=== PATIENT | female | born 1950 | race Caucasian/White ===

== ENCOUNTER 2025-08-06 08:25 | Day surgery (SDC) | payer MEDICARE, OTHER, SELFPAY ==
--- NOTE | 2025-07-31 10:43 | EXP.HP ---
History of Present Illness *Admission Date: 08/06/25 *History of present illness: Mrs. Tinoco is a 75-year-old female who is here for screening/surveillance endoscopy and colonoscopy. She does have a history of adenomatous colon polyps. Her colonoscopy with ut at age 49 was normal. Her colonoscopy in March 2011 (Lucero Saldana MD) showed a single diminutive polyp. Her last colonoscopy with ut in October 2017 revealed a single polyp (mucosal prolapse polyp). The patient does have a history of a larger and more advanced duodenal adenoma and her last EGD was in March 2022. At that time there was a fibrotic scar at the site of prior removal but no residual adenoma. The examination is deemed medically necessary for EGD and screening colonoscopy. The patient has been seen, interviewed and examined prior to the procedure by both myself and the anesthesia provider. [facility] Disclaimer: The information contained in this section may have been updated after the patient was seen, as this information can be updated by other users. Medical History (Updated 08/06/25 @ 09:37 by Nolan Perkins II, MD) Osteoarthritis Irritable bowel syndrome (IBS) History of cataract Skin cancer Surgical History (Updated 08/06/25 @ 09:04 by Leidy Coronado RN) History of cholecystectomy History of colonoscopy Family History (Updated 08/06/25 @ 09:04 by Leidy Coronado RN) Mother Family history of myocardial infarction Social History Smoking Status: Never smoker alcohol intake: never substance use type: denies use current occupational status: retired Travel in the last 8 weeks?: Inside the [place] Review of Systems Review of Systems Review of systems (narrative): Negative *Cardiovascular Comments: Negative *Gastrointestinal Comments: Negative *Genitourinary Comments: Negative *Musculoskeletal Comments: Negative *Neurologic Comments: Negative Meds Home Medications and Allergies Home Medications ?Medication ?Instructions ?Recorded ?Confirmed ?Type sodium,potassium,mag sulfates 17.5 See Rx Instructions PO .COMPLEX 07/23/25 08/06/25 Rx gram-3.13 gram-1.6 gram oral soln #354 mL (Suprep Bowel Prep Kit) atenolol 50 mg tablet 50 mg PO DAILY 08/06/25 08/06/25 History rosuvastatin 5 mg tablet 5 mg PO DAILY 08/06/25 08/06/25 History New Prescriptions to Start Prescriptions: Allergies Allergy/AdvReac Type Severity Reaction Status Date / Time Unable to Assess Allergy Verified 12/09/24 13:44 Exam *Routine HEENT Exam Head: Present normocephalic Eye: Present EOMI and PERRL ENT: Present mucous membranes moist *Routine Neck Exam Neck: Present supple *Routine Respiratory Exam Respiratory: Present CTA bilaterally *Routine Cardiovascular Exam Cardiovascular: Present RRR *Routine Abdominal Exam Abdominal: Present soft and normoactive bowel sounds; Absent tenderness *Routine Rectal Exam Rectal:: deferred *Routine Genitalia Exam Genitalia:: deferred *Routine Extremities Exam Extremities: Absent cyanosis, clubbing or edema *Routine Skin Exam Skin: Present warm; Absent rash *Routine Neurological Exam Neurological: Present alert and oriented X3 Assessment and Plan *Assessment and plan (1) Screening for colon cancer: Status: Acute Category: Medical Code(s): Z12.11 - (2) Personal history of colon polyps, unspecified: Status: Acute Category: Medical Code(s): Z86.0100 - (3) Duodenal adenoma: Status: Acute Category: Medical Code(s): D13.2 - Benign neoplasm of duodenum Plan A/P: 1. History of duodenal adenoma for upper endoscopy and screening for colon cancer and personal history of colon polyps (unspecified) for colonoscopy is the preprocedural diagnosis. The patient will be anesthetized/sedated using MAC sedation. The patient has been seen and examined. Cardiac and lung assessment prior to the examination is stable. Proceed with planned EGD and screening colonoscopy.
--- NOTE | 2025-08-05 07:53 | HMH.PROCNOTE ---
[facility] Procedure Note Date: 08/06/25 Time: 10:06 Procedure Note:: Colonoscopy Procedure Report: Colonoscopy with cold snare polypectomy Endoscopist: Nolan Perkins II, MD Referring physician: Hugo Najera MD Date of Procedure: July Equipment: Olympus [id number] adult colonoscope Sedation: MAC sedation Indication: Mrs. Tinoco is a 75-year-old female who is here for screening/surveillance colonoscopy. She does have a history of adenomatous colon polyps. Her colonoscopy with ia at age 49 was normal. Her colonoscopy in March 2011 (Lucero Saldana MD) showed a single diminutive polyp. Her last colonoscopy with ia in October 2017 revealed a single polyp (mucosal prolapse polyp). The patient reports no abdominal pain, weight loss, change in her bowel habits or rectal bleeding. She reports no family history of colon cancer. She does have some mild chronic constipation the examination is deemed medically necessary for screening colonoscopy. Procedure: Prior to the procedure, a history and physical exam was performed, and patient's medications and allergies were reviewed. The risks, benefits and alternatives of the sedation and procedure were discussed with the patient. All questions were answered and informed consent was obtained. The patient was brought to the procedure room. Patient identification and proposed procedure were verified by the physician and the nurse. The patient was placed in a left lateral decubitus position and the scope was passed under direct vision. Throughout the procedure, the patient's blood pressure, pulse, and oxygen saturations were monitored continuously. The colonoscopy was accomplished without difficulty. The patient tolerated the procedure well. Findings: On digital rectal examination there was normal rectal tone. There were no external hemorrhoids. The colonoscope was introduced through the anal canal to the rectum and advanced to the cecum. The ileocecal valve and appendiceal orifice were identified. The scope was advanced a short distance into the ileum which appeared grossly normal. The scope was then withdrawn into the colon. The cecum, ascending and transverse colon and mucosa were grossly normal. There were scattered diverticuli throughout the descending and sigmoid colon (LEFT colon). There were 2 colon polyps (sigmoid x 1 (4 mm within a diverticulum) and rectum x 1 (3 mm)). Both of these were removed via cold snare polypectomy. The rectum itself was normal. Upon retroflexion within the rectum there were grade 1-2 internal hemorrhoids. The preparation was excellent throughout with Eckert Preparation Score of 9. The cecal time was 12 minutes. Impression: 1. Diminutive colonic polyps x 2 2. Left-sided diverticulosis 3. Grade 1-2 internal hemorrhoids Plan: I will follow-up the polyp histology. She will not require further screening/surveillance colonoscopy. I would encourage a fiber bowel regimen on a long-term daily maintenance basis.
[2025-08-06 08:59] VITALS: BP 148/73; PULSE 68; RESP 18; TEMP 36.2; O2SAT 98; BMI 27.4
[2025-08-06] MEDS: LACTATED RINGERS 1000ML 1,000 ML 50 ML IV (09:17)
--- NOTE | 2025-08-06 09:23 | EXP.ANES.CKL ---
[facility] Disclaimer: The information contained in this section may have been updated after the patient was seen, as this information can be updated by other users. Medical History (Updated 08/06/25 @ 09:04 by Leidy Coronado RN) Osteoarthritis Irritable bowel syndrome (IBS) History of cataract Skin cancer Surgical History (Updated 08/06/25 @ 09:04 by Leidy Coronado RN) History of cholecystectomy History of colonoscopy Family History (Updated 08/06/25 @ 09:04 by Leidy Coronado RN) Mother Family history of myocardial infarction Social History Smoking Status: Never smoker alcohol intake: never substance use type: denies use current occupational status: unemployed Travel in the last 8 weeks?: Inside the [place] [facility] Anesthesia Checklist Patient Identification Patient Identification: Verbal (Name & ) Structural Data Admitted From: Home Planned Operative Procedure/s: egd,colonoscopy Consent for Planned Operative Procedure(s) Verified: Yes NPO Status Verified Time NPO: 00:00 Airway Assessment Mallampati Score:: Class II C-Spine Mobility Assessed: Yes TMJ Mobility Assessed: Yes Dentition: Good Dentition Neurological Assessment Level of Consciousness: Awake, Alert and Appropriate Anesthesia Plan Anesthesia Risk discussed: Yes Anesthesia Plan: Verified ASA Class: II Anesthesia Type: MAC
--- NOTE | 2025-08-06 09:38 | HMH.PROCNOTE ---
[facility] Procedure Note Date: 08/06/25 Time: 09:49 Procedure Note:: Upper Endoscopy Procedure Report: Esophagogastroduodenoscopy with cold biopsies and TTS balloon dilation Endoscopost: Nolan Perkins II, MD Referring Physician: Hugo Najera MD Date of Procedure: August 06, 2025 Equipment: Olympus [id number] standard upper endoscope Sedation: MAC sedation Indications: Mrs. Tinoco is a 75-year-old female who is here for surveillance upper endoscopy. The patient does have a history of a larger and more advanced duodenal adenoma and her last EGD was in March 2022. At that time there was a fibrotic scar at the site of prior removal but no residual adenoma. The patient does get some intermittent dysphagia. She reports no abdominal pain, heartburn or reflux. The examination is deemed medically necessary for screening colonoscopy. Procedure: Prior to the procedure, a history and physical exam was performed, and patient's medications and allergies were reviewed. The risks, benefits and alternatives of the sedation and procedure were discussed with the patient. All questions were answered and informed consent was obtained. The patient was brought to the procedure room. Patient identification and proposed procedure were verified by the physician and the nurse. The patient was placed in a left lateral decubitus position and the scope was passed under direct vision. Throughout the procedure, the patient's blood pressure, pulse, and oxygen saturations were monitored continuously. The upper GI endoscopy was accomplished without difficulty. The patient tolerated the procedure well. Findings: The scope was passed directly into the upper esophagus and advanced to the third portion of the duodenum. The post bulbar duodenum, ampulla and duodenal bulb were normal with normal mucosa and conniventes. There was no residual duodenal adenoma identified. The scope was withdrawn through a normal duodenal bulb and pylorus into the stomach. There was minimal gastropathy of the antrum. There were a few gastric small fundic polyps. Cold biopsies were taken from the antrum. The body and fundus of the stomach were normal. Upon retroflexion there was no hiatal hernia. The scope was then withdrawn into the esophagus. There was no evidence of reflux esophagitis or Betancourt's. There was tertiary contractions and mild esophageal dysmotility. The entire esophagus was dilated to 60 Armenian/20 mm with a TTS hydrostatic balloon. There was mild resistance at the cricopharyngeus. The remainder of the esophageal mucosa was normal. Impression: 1. No residual duodenal adenoma 2. 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
[2025-08-06 10:10] VITALS: BP 134/67; PULSE 60; RESP 16; TEMP 36.3; O2SAT 98
[2025-08-06 10:20] VITALS: BP 138/73; PULSE 58; RESP 18; O2SAT 99
[2025-08-06 10:30] VITALS: BP 142/82; PULSE 68; RESP 18; O2SAT 99
[2025-08-06 10:40] VITALS: BP 131/53; PULSE 68; RESP 18; O2SAT 96
== END 2025-08-06 10:40 | disposition home or self-care (01) ==
PROVIDERS: PCP Family Medicine; Visit Provider Internal Medicine Gastroenterology
PROC: 0DJ08ZZ Inspection of Upper Intestinal Tract, Via Natural or Artificial Opening Endoscopic (ICD-10-PCS; CPT 45378; principal; 2025-08-06 10:00)
DX: Z12.11 Encounter for screening for malignant neoplasm of colon (principal); D12.8 Benign neoplasm of rectum; K63.5 Polyp of colon; K57.30 Diverticulosis of large intestine without perforation or abscess without bleeding; K64.0 First degree hemorrhoids; K64.1 Second degree hemorrhoids; K22.4 Dyskinesia of esophagus; D13.2 Benign neoplasm of duodenum; K31.7 Polyp of stomach and duodenum; K59.09 Other constipation; Z86.0101 Personal history of adenomatous and serrated colon polyps
CPT/HCPCS: 43239; 43249; 45385; 88305; C1726; J2003; J2704; J7120